=== PATIENT | female | born 1980 | race Two or more races ===

== ENCOUNTER 2022-08-24 17:10 | Emergency (ER) | payer MEDICAID, OTHER ==
[~2022-08-24] VITALS: Ht 170.2 cm; Wt 84.2 kg
[2022-08-24 18:33] VITALS: BP 141/90
[2022-08-24] MEDS ORDERED: METF-370 PO (18:50)
[2022-08-24] MEDS ORDERED: GABA-339 PO (18:50)
[2022-08-24] MEDS ORDERED: GABA300C10 PO (18:50)
== END 2022-08-24 19:06 | disposition home or self-care (01) ==
LOC: ER 17:14
DX: E11.65 Type 2 diabetes mellitus with hyperglycemia (principal); Z76.0 Encounter for issue of repeat prescription; Z79.899 Other long term (current) drug therapy; Z79.84 Long term (current) use of oral hypoglycemic drugs
CPT/HCPCS: 82962

== ENCOUNTER 2022-10-01 15:24 | Emergency (ER) | payer MEDICAID ==
[~2022-10-01] VITALS: Ht 170.2 cm; Wt 85.6 kg
[~2022-10-01 15:24] MED LIST: GABA-339 PO; GABA300C10 PO; METF-370 PO
[2022-10-01 17:34] VITALS: BP 122/77
[2022-10-01] MEDS ORDERED: GABA100C9 PO ×2 (17:34)
[2022-10-01] MEDS ORDERED: GABA300C10 PO ×2 (19:30)
[2022-10-01] MEDS ORDERED: GABA-339 PO (20:32)
== END 2022-10-01 17:40 | disposition home or self-care (01) ==
LOC: ER 15:24
DX: E11.9 Type 2 diabetes mellitus without complications (principal); Z76.0 Encounter for issue of repeat prescription; Z79.899 Other long term (current) drug therapy

== ENCOUNTER 2023-04-09 09:52 | Emergency (ER) | payer MEDICAID ==
[~2023-04-09] VITALS: Ht 170.2 cm; Wt 84.9 kg
[~2023-04-09 09:52] MED LIST changes: +GABA-1250 PO; +GABA-1308 PO; -GABA300C10 PO
[2023-04-09 12:06] VITALS: BP 157/77; PULSE 92; RESP 18; TEMP 98.1; O2SAT 96
[2023-04-09] MEDS ORDERED: MUPI2OIN2 EX (12:15)
[2023-04-09] MEDS ORDERED: TETANUS-DIPTH-ACEL PERTUSSIS 0.5ML SYR Tdap IM ONE (12:15)
[2023-04-09] MEDS ORDERED: IBUP1TAB5 PO (12:15)
[2023-04-09] MEDS ORDERED: CEPH500C PO (12:15)
[2023-04-09] MEDS ORDERED: NEOMYCIN-BACITRACIN-POLYM UNITDOSE PKG TOP OINT TOP ONE ×2 (12:15→12:40)
[2023-04-09] MEDS ORDERED: CEPHALEXIN 250 MG CAP PO ONE ×2 (12:15→12:40)
[2023-04-09] MEDS ORDERED: TETANUS IMMUNE GLOBULIN 250 UNIT/ML SYRG IM ONE (12:41)
== END 2023-04-09 12:54 | disposition home or self-care (01) ==
LOC: ER 09:52
DX: S61.411D Laceration without foreign body of right hand, subsequent encounter (principal); L08.9 Local infection of the skin and subcutaneous tissue, unspecified; E11.9 Type 2 diabetes mellitus without complications; Z88.6 Allergy status to analgesic agent; X58.XXXD Exposure to other specified factors, subsequent encounter
CPT/HCPCS: 90471; 90715

== ENCOUNTER 2025-01-22 08:10 | Emergency (ER) | payer MEDICAID, OTHER ==
[~2025-01-22] VITALS: Ht 167.6 cm; Wt 79.9 kg
[~2025-01-22 08:10] MED LIST changes: +CEPH500C PO; +IBUP1TAB5 PO; +MUPI2OIN2 EX
--- NOTE | 2025-01-22 08:38 | ED.PDOC ---
General HPI Comments A 44 YEAR OLD FEMALE PRESENTS TO THE ED WITH COMPLAINT OF PAINFUL URINATION, URINARY URGENCY, AND SUPRAPUBIC PAIN THAT STARTED ON 01/12/25. PATIENT REPORTS HAVING SMALL URINE OUTPUT AND WHEN TURNING IN HER UA CUP, NOTICED BLOOD IN HER URINE. PATIENT WAS SEEN AT [facility] FOR URINARY SYMPTOMS, WAS DIAGNOSED WITH A UTI AND GIVEN A 7 DAY COURSE OF AMOXICILLIN IN WHICH SHE FINISHED BUT DENIES SYMPTOM RELIEF. PATIENT DENIES FEVER, CHILLS, SHORTNESS OF BREATH, CHEST PAIN, NAUSEA, VOMITING, HEADACHE, OR OTHER COMPLAINTS. NO OTHER SYMPTOMS OR MODIFYING FACTORS AT THIS TIME. PATIENT IS ALERT, ORIENTED X 4, AND HAS STEADY GAIT. Chief Complaint: Urinary Time Seen by MD: 08:30 Primary Care Provider: UNKNOWN Reviewed notes: Nurses Notes, Medications, Allergies Allergies: Coded Allergies: Ondansetron (Verified Allergy, Unknown, 12/12/22) Home Meds Active Scripts Ibuprofen Micronized (Ibuprofen) 600 Mg Tab, 1 TAB PO Q6HR, #20 TAB As needed for pain Prov:JEAN MARIE SHRESTHAA Q DRY LUMBER GRADER 04/09/23 Mupirocin (Pseudomonas Fluores (Mupirocin) 2 % Oin, 1 APPLIC EX TID for 10 Days, #15 MG Prov:SHRESTHANORALDA Q DRY LUMBER GRADER 04/09/23 Cephalexin Monohydrate (Cephalexin) 500 Mg Cap, 1 CAP PO QID for 10 Days, #40 CAP Prov:SHRESTHANORALDA Q DRY LUMBER GRADER 04/09/23 Gabapentin (Gabapentin) 300 Mg Cap, 1 CAP PO QHSP PRN, #20 CAP Prov:GAYATRI COLEMAN 11/09/22 Gabapentin (Gabapentin) 600 Mg Tab, 1 TAB PO TID, #60 TAB Prov:GAYATRI COLEMAN PA 11/09/22 Gabapentin (Gabapentin) 600 Mg Tab, 1 TAB PO TID, #90 TAB 0 Refills Prov:TY QUIROZ [employer] 10/01/22 Gabapentin (Gabapentin) 300 Mg Cap, 300 MG PO HS, #30 CAP Prov:TY QUIROZ [employer] SUPER[employer] 10/01/22 Gabapentin (Gabapentin) 300 Mg Cap, 300 MG PO QPM for 30 Days, #30 CAP 0 Refills Prov:TY QUIROZ [employer]PER[employer] 10/01/22 Gabapentin (Gabapentin) 100 Mg Cap, 1 CAP PO HS, #30 CAP 1 Refill Dose: 300mg CAP Take 300 mg at bedtime Prov:STERLING PARRISH [facility] 10/01/22 Gabapentin (Gabapentin) 100 Mg Cap, 1 CAP PO TID, #90 CAP 1 Refill Dose: 600mg CAP Take 600 mg p.o. TID daily Prov:STERLING PARRISH [facility] 10/01/22 Gabapentin (Gabapentin) 600 Mg Tab, 1 TAB PO TID for 30 Days, #90 TAB 0 Refills Prov:JAZLYN SMITH 08/24/22 Metformin Hydrochloride (Metformin Hcl) 500 Mg Tab, 2 TAB PO BID for 30 Days, #120 TAB 0 Refills Prov:JAZLYN SMITH 08/24/22 Information Source: Patient Mode of Arrival: Ambulatory Severity: Mild, Moderate Inability to void: Mild Timing: Days (10) Duration: Since onset, Days Prehospital treatment: Treatment Onset: Spontaneous Symptoms: Dysuria, Urgency History of: UTI Location: Suprapubic associated signs and symptoms: Dysuria, Urgency, None Past Medical History PAST MEDICAL HISTORY: DM Surgical History: ROUTE RIDER History: No Pertinent ROUTE RIDER History Family History Family History: Unknown Social History Smoker: Non-Smoker Alcohol: Denies ETOH Use Drugs: Denies Drug Use Lives In: Home Constitutional: denies: chills, diaphoresis, fatigue, fever, malaise, sweats, weakness, others EENTM: denies: blurred vision, double vision, ear bleeding, ear discharge, ear drainage, ear pain, ear ringing, eye pain, eye redness, hearing loss, mouth pain, mouth swelling, nasal discharge, nose bleeding, nose congestion, nose pain, photophobia, tearing, throat pain, throat swelling, voice changes, others Respiratory: denies: cough, hemoptysis, orthopnea, SOB at rest, shortness of breath, SOB with excertion, stridor, wheezing, others Cardiovascular: denies: chest pain, dizzy spells, diaphoresis, Dyspnea on exertion, edema, irregular heart beat, left arm pain, lightheadedness, palpitations, PND, syncope, others Gastrointestinal: denies: abdomen distended, abdominal pain, blood streaked bowels, constipated, diarrhea, dysphagia, difficulty swallowing, hematemesis, melena, nausea, poor appetite, poor fluid intake, rectal bleeding, rectal pain, vomiting, others Genitourinary: reports: burning, dysuria, frequency, pain (SUP[RA[UBIC ), urgency; denies: abnormal vagina bleeding, dyspareunia, flank pain, hematuria, incontinence, , vagina discharge, others Neurological: denies: dizziness, fainting, headache, left sided numbness, left sided weakness, numbness, paresthesia, pre-existing deficit, right sided numbness, right sided weakness, seizure, speech problems, tingling, tremors, weakness, others Musculoskeletal: denies: back pain, gout, joint pain, joint swelling, muscle pain, muscle stiffness, neck pain, others Integumetry: denies: bruises, change in color, change in hair/nails, dryness, laceration, lesions, lumps, rash, wounds, others Allergic/Immunocompromised: denies: Difficulty Healing, Frequent Infections, Hives, Itching, others Hematologic/Lymphatic: denies: anemia, blood clots, easy bleeding, easy bruising, swollen glands, others Endocrine: denies: excessive hunger, excessive sweating, excessive thirst, excessive urination, flushing, intolerance to cold, intolerance to heat, une xplained weight gain, unexplained weight loss, others Psychiatric: denies: anxiety, bipolar disorder, depression, hopeless, panic disorder, schizophrenia, sleepless, suicidal, others All Other Systems: Reviewed and Negative Physical Exam General Appearance: No Apparent Distress, Normal HEENT: Normal ENT Inspection, PERRL/EOMI, Pharynx Normal, TMs Normal Neck: Full Range of Motion, Non-Tender, Normal, Normal Inspection Respiratory: Chest Non-Tender, Lungs Clear, No Accessory Muscle Use, No Re spiratory Distress, Normal Breath Sounds Cardiovascular: No Edema, No JVD, No Murmur, No Gallop, Normal Peripheral Pulses, Regular Rate/Rhythm Breast Exam: Deferred Gastrointestinal: No Organomegaly, No Pulsatile Mass, Normal Bowel Sounds, Soft, Suprapubic, Tenderness (SUPRAPUBIC, NO GUARDING AND REBOUND TENDERNESS. ) Genitalia: Deferred Pelvic: Normal External Exam, Tender Uterus Rectal: Deferred Extremities: No calf tenderness, Normal capillary refill, Normal inspection, Normal range of motion, Non-tender, No pedal edema Musculoskeletal : Apperance: Normal Neurologic: Alert, obstetrics gynecology physician II-XII nml as Tested, No Motor Deficits, Normal Affect, Normal Mood, No Sensory Deficits Cerebellar Function: Normal Reflexes: Normal Skin: Dry, Normal Color, Warm Peripheral Pulses: 2+ carotid (R), 2+ carotid (L) Lymphatic: No Adenopathy Was a procedure done? Was a procedure done?: No Differential Diagnosis Kidney stone (Female): N/A Urinary Problem (Female): Impaction, Pyelonephritis, Urinary retention, Urolith iasis, UTI X-Ray, Labs, Meds, VS Vital Signs Date Time Temp Pulse Resp B/P (MAP) Pulse Ox O2 Delivery O2 Flow Rate FiO2 01/22/25 08:11 97.9 91 18 125/80 96 97.9 Lab Test 01/22/25 08:17 Range/Units Urine Color Kimberly H Yellow Urine Clarity Ex.turbid Clear Urine pH 5.5 5.0-9.0 Urine Specific [place] 1.017 1.001-1.035 Urine Protein 1+ H Negative Urine Ketones Negative Negative Urine Blood 3+ H Negative /uL Urine Nitrite Negative Negative Urine Bilirubin Negative Negative Urine Urobilinogen Normal Negative mg/dL Urine Leukocyte Esterase 3+ Negative /uL Urine RBC 3340 0 - 4 /hpf Urine Microscopic WBC 2007 H 0-5 /HPF Urine Squamous Epithelial Cells None seen <5 /hpf Urine Bacteria None seen None Seen /hpf Urine Glucose Normal Normal mg/dL Urine Test Negative Negative Current Medications Medications (Trade) Dose Ordered Sig/Neris Route Start Time Stop Time Status Last Admin Ketorolac Tromethamine (Toradol Injection) 60 mg ONCE ONCE IM 01/22/25 08:45 01/22/25 08:46 DC 01/22/25 08:43 Ceftriaxone Sodium (Rocephin) 1,000 mg ONCE ONCE IM 01/22/25 08:45 01/22/25 08:46 DC 01/22/25 08:43 X-Ray, Labs, Meds, VS Comment EXTERNAL MEDICAL RECORDS REVIEWED: [NONE] INDEPENDENT HISTORIANS: [NONE] SOCIAL DETERMINANTS OF HEALTH: [NONE] LABS ORDERED: URINE ANALYSIS AND URINE TEST REVIEWED AND INTERPRETED RESULTS: NONE IMAGING ORDERED: NONE TREATMENTS ORDERED: Ceftriaxone 1,000MG IM AND TORADOL 60MG IM PROCEDURES PERFORMED: NONE CRITICAL CARE TIME: NONE I HAVE DISCUSSED THE PATIENT WITH THE ATTENDING PHYSICIAN DR. ANDREW AND HE AG KERI WITH THE PATIENT'S PLAN OF CARE AND DISPOSITION. BASED ON HISTORY OF PRESENT ILLNESS, AND PHYSICAL EXAM, PATIENT WILL BE D ISCHARGED HOME. DISCUSSED PLAN FOR DISCHARGE HOME WITH RX [SEPTRA DS AND PYRIDIUM*]. MEDICATION WARNINGS GIVEN. SHARED DECISION MAKING: DISCUSSED WITH PATIENT THAT THEIR WORKUP WAS NORMAL. PATIENT INSTRUCTED TO FOLLOW UP WITH PRIMARY CARE PROVIDER IN 1-2 DAYS FOR RE- EVALUATION OF SYMPTOMS. PATIENT VERBALIZES UNDERSTANDING TO RETURN TO ED FOR NEW OR WORSENING SYMPTOMS OR IF FOLLOW UP WITH PCP CANNOT BE OBTAINED. PATIENT FEELS COMFORTABLE GOING HOME AT THIS TIME. ALL QUESTIONS ADDRESSED AT TIME OF DISCHARGE. Time of 1ST Reevaluation: 09:01 Reevaluation 1ST: Improved Patient Education/Counseling: Diagnosis, Treatment, Need For Follow Up Family Education/Counseling: Diagnosis, Treatment, No Family Present Medical Screening: No EMC Exist At This Time SEPSIS Sepsis Screen Date sepsis recognized/suspect: Jan 22, 2025 Time Sepsis recognized/suspect: 811 Recent Procedure: No On Antibiotic Therapy: No Respiratory Rate >20: No Heart Rate >90: No Temp<36 C (96.8 F) or >38.3 C: No SBP <90 or MAP <65 mmHG: No New Acute Mental Status Change: No Is the patient on CPAP, BIPAP,: No Vital Signs Date Time Temp Pulse Resp B/P (MAP) Pulse Ox O2 Delivery O2 Flow Rate FiO2 01/22/25 08:11 97.9 91 18 125/80 96 97.9 Medications Medications Dose Ordered Sig/Neris Route Start Time Stop Time Status Last Admin Dose Admin Ceftriaxone Sodium 1,000 mg ONCE ONCE IM 01/22/25 08:45 01/22/25 08:46 DC 01/22/25 08:43 Ketorolac Tromethamine 60 mg ONCE ONCE IM 01/22/25 08:45 01/22/25 08:46 DC 01/22/25 08:43 Departure 1 Departure Time of Disposition: 09:00 Impression: Primary Impression: UTI (urinary tract infection) Qualified Codes: N30.01 - Acute cystitis with hematuria Disposition: HOME / SELF CARE / HOMELESS Condition: Stable Additional Instructions: F/U PCP IN 2 DAYS RECHECK. IF CONDITION BECOME WORSE, RETURN TO ED [facility]. e-Prescriptions Phenazopyridine HCl (Phenazopyridine Hydrochlo) 200 Mg Tab 200 MG PO TID, #6 TAB Prov: GAYATRI COLEMAN 01/22/25 Sulfamethoxazole W/Trimethopri (Bactrim Ds Tablet) 1 Tab Tb 1 TAB PO BID for 8 Days, #16 TAB Prov: GAYATRI COLEMAN 01/22/25 Discharged With: Self Critical Care Note Critical Care Time?: No Stability Stability form required: No I personally scribed for GAYATRI COLEMAN ([email or web address]) on 01/22/25 at 08:38. Electronically submitted by Shruthi Weems ([facility]). I personally scribed for GAYATRI COLEMAN ([email or web address]) on 01/22/25 at 08:41. Electronically submitted by Shruthi Weems ([facility]). GAYATRI COLEMAN Jan 22, 2025 08:38
[2025-01-22] MEDS: KETOROLAC TROMETH 60MG/2ML VIAL IM ONE (08:43)
[2025-01-22] MEDS: cefTRIAXone SOD 1,000 MG VL IM ONE (08:43)
[2025-01-22 08:47] LABS: Urine Protein, UAD 1+ (Negative)
[2025-01-22 09:00] VITALS: BP 99/69; PULSE 89; RESP 16; TEMP 98.3; O2SAT 96
[2025-01-22] MEDS ORDERED: PHEN-922 PO (09:00)
[2025-01-22] MEDS ORDERED: BACDST PO (09:00)
== END 2025-01-22 09:06 | disposition home or self-care (01) ==
LOC: ER 08:10
DX: N39.0 Urinary tract infection, site not specified (principal); E11.9 Type 2 diabetes mellitus without complications; Z87.440 Personal history of urinary (tract) infections; Z79.84 Long term (current) use of oral hypoglycemic drugs; Z79.899 Other long term (current) drug therapy; Z98.890 Other specified postprocedural states
CPT/HCPCS: 81001; 81025; 96372; 99284; J0696; J1885